=== PATIENT | female | born 1935 | race Caucasian/White ===

== ENCOUNTER 2023-04-17 11:37 | Emergency (ER) | payer OTHER ==
[2023-04-17 12:07] VITALS: BMI 20.1
[2023-04-17] MEDS ORDERED: ACETAMINOPHEN 1000 MG/100 ML BAG IVPB ONE (12:37)
[2023-04-17 13:24] LABS: INR 1.05 (0.83-1.09); PROTHROMBIN TIME (PATIENT) 12.2 SEC (9.7-13.0)
[2023-04-17 13:25] LABS: BASO % 0.6 % (0-2.0); EOS % 2.2 % (0-4.5); HEMATOCRIT 44.6 % (32.4-45.2); HEMOGLOBIN 14.1 GM/dL (10.7-15.3); LYMPH % 9.8 % (8-40); MCH 30.6 pg (25.7-33.7); MCHC 31.6 g/dl (32.0-36.0); MEAN CELL VOLUME 96.9 fl (80-96); MEAN PLT VOLUME 9.2 fl (7.5-11.1); MONO % 5.5 % (3.8-10.2); NEUT % 81.9 % (42.8-82.8); PLATELET COUNT 470 10^3/uL (134-434); RDW 17.4 % (11.6-15.6); WHITE BLOOD COUNT 9.7 K/mm3 (4.0-10.0)
[2023-04-17 13:27] LABS: ACTIVATED PTT 35.1 SECONDS (25.2-36.5)
[2023-04-17] MEDS ORDERED: ACETAMINOPHEN INJECTION 100 ML IVPB ONE (13:32)
[2023-04-17 13:42] LABS: EPI CELLS >36 /uL (0-25.1); HYALINE CASTS 1 /uL (0-3.1); PH,URINE 7.5 (5.0-8.0); URINE APPEARANCE CLOUDY; URINE BACTERIA >9,000 /uL (0-1359); URINE BILIRUBIN NEGATIVE (NEGATIVE); URINE COLOR YELLOW; URINE GLUCOSE (UA) NEGATIVE (NEGATIVE); URINE KETONE NEGATIVE (NEGATIVE); URINE LEUK ESTERASE 2+ (NEGATIVE); URINE NITRITE NEGATIVE (NEGATIVE); URINE PROTEIN TRACE (NEGATIVE); URINE RBC 18 /uL (0-23.9); URINE UROBILINOGEN 0.2 mg/dL (0.2-1.0); URINE WBC 632 /uL (0-25.8)
[2023-04-17] MEDS ORDERED: CEFTRIAXONE 1,000 MG in DEXTROSE 5%-WATER - 50 ML IVPB ONE (15:33)
[2023-04-17] MEDS ORDERED: CEFTRIAXONE 1 GM/50 ML BAG ONE (15:41)
[2023-04-17 18:20] LABS: POTASSIUM 4.7 mmol/L (3.5-5.1)
[2023-04-17 18:23] LABS: BLOOD UREA NITROGEN 25.2 mg/dL (7-18)
[2023-04-17 18:26] LABS: CREATININE 0.9 mg/dL (0.55-1.3)
[2023-04-17 18:27] LABS: BILIRUBIN,TOTAL 1.1 mg/dL (0.2-1)
[2023-04-17 18:41] LABS: ALBUMIN 3.3 g/dl (3.4-5.0); TOT PROT 6.2 g/dl (6.4-8.2)
[2023-04-17 22:39] VITALS: BP 122/61; PULSE 65; RESP 16; TEMP 98.7
== END 2023-04-17 22:54 | disposition home or self-care (01) ==
LOC: JER 11:37
PROC: 3E033GC Introduction of Other Therapeutic Substance into Peripheral Vein, Percutaneous Approach (ICD-10-PCS; principal; 2023-04-17)
PROC: 3E033NZ Introduction of Analgesics, Hypnotics, Sedatives into Peripheral Vein, Percutaneous Approach (ICD-10-PCS; 2023-04-17)
DX: R22.41 Localized swelling, mass and lump, right lower limb (principal); S80.11XA Contusion of right lower leg, initial encounter; N39.0 Urinary tract infection, site not specified; W19.XXXA Unspecified fall, initial encounter
CPT/HCPCS: 36415; 70450-TC; 71045-TC-FY; 72125-TC; 72170-TC-FY; 73590-TC-RT-FY; 73610-TC-RT-FY; 73630-TC-RT-FY; 80053; 81003; 84484; 85025; 85610; 85730; 87086; 87186; 93005; 93010; 93971-TC; 99285-25

== ENCOUNTER 2023-04-27 18:59 | Inpatient (IN) | payer OTHER ==
[2023-04-27] MEDS ORDERED: BACITRACIN ZINC 15 GM TUBE TOPICAL OINTMENT TP ONE (20:46)
[2023-04-27] MEDS ORDERED: BACITRACIN 0.9 GM PACKET ONE (20:48)
[2023-04-27] MEDS ORDERED: BACITRACIN ZINC 15 GM TUBE TOPICAL OINTMENT ONE (20:49)
[2023-04-27 21:46] LABS: EOS % 3.4 % (0-4.5); HEMATOCRIT 38.7 % (32.4-45.2); HEMOGLOBIN 12.3 GM/dL (10.7-15.3); LYMPH % 14.1 % (8-40); MCH 30.6 pg (25.7-33.7); MCHC 31.8 g/dl (32.0-36.0); MEAN CELL VOLUME 96.2 fl (80-96); MEAN PLT VOLUME 8.7 fl (7.5-11.1); NEUT % 72.5 % (42.8-82.8); PLATELET COUNT 450 10^3/uL (134-434); RBC 4.02 M/mm3 (3.60-5.2); RDW 13.7 % (11.6-15.6); WHITE BLOOD COUNT 12.4 K/mm3 (4.0-10.0)
[2023-04-27 22:05] LABS: POTASSIUM 5.5 mmol/L (3.5-5.1)
[2023-04-27 22:07] LABS: ALBUMIN 2.8 g/dl (3.4-5.0); CALCIUM 8.8 mg/dL (8.5-10.1)
[2023-04-27 22:08] LABS: BLOOD UREA NITROGEN 31.1 mg/dL (7-18)
[2023-04-27 22:12] LABS: BILIRUBIN,TOTAL 0.9 mg/dL (0.2-1); TOT PROT 6.2 g/dl (6.4-8.2)
[2023-04-27] MEDS ORDERED: traZODone HCL 50 MG TABLET (FP) PO ONE (23:16)
[2023-04-27] MEDS ORDERED: ACETAMINOPHEN 325 MG TABLET (FP) PO PRN (23:22)
[2023-04-27] MEDS: INSULIN SLIDING SCALE (NOVOLOG) 1 VIAL SQ SCH (23:57)
[2023-04-28] MEDS ORDERED: traZODone HCL 50 MG TABLET (FP) ONE (00:08)
[2023-04-28] MEDS: DEXTROSE 5%-0.45% SALINE 1,000 ML IV SCH (00:16)
[2023-04-28] MEDS: HEPARIN NA (PORCINE) 5,000 UNITS/ML 1ML VIAL SQ SCH ×4 (00:33→22:19)
[2023-04-28] MEDS ORDERED: CEFAZOLIN 1 GM in DEXTROSE 5%-WATER - 50 ML IVPB ONE (01:07)
[2023-04-28] MEDS ORDERED: traZODone HCL 50 MG TABLET (FP) PO PRN (01:12)
[2023-04-28] MEDS ORDERED: ceFAZolin SODIUM 1 GM VIAL ONE (01:16)
[2023-04-28 02:45] VITALS: BMI 19.1
[2023-04-28] MEDS: INSULIN SLIDING SCALE (NOVOLOG) 1 VIAL SQ SCH ×3 (06:05→17:21)
[2023-04-28] MEDS: AMINO ACIDS/PROTEIN HYDROLYS 30 ML LIQUID.PKT PO SCH ×2 (08:02→18:15)
[2023-04-28 09:37] LABS: BASO % 0.8 % (0-2.0); HEMATOCRIT 35.1 % (32.4-45.2); HEMOGLOBIN 11.9 GM/dL (10.7-15.3); LYMPH % 15.9 % (8-40); MCH 31.8 pg (25.7-33.7); MEAN CELL VOLUME 93.5 fl (80-96); MEAN PLT VOLUME 8.7 fl (7.5-11.1); MONO % 7.3 % (3.8-10.2); PLATELET COUNT 445 10^3/uL (134-434); RBC 3.75 M/mm3 (3.60-5.2); RDW 14.1 % (11.6-15.6); WHITE BLOOD COUNT 8.8 K/mm3 (4.0-10.0)
[2023-04-28 09:43] LABS: POTASSIUM 4.3 mmol/L (3.5-5.1)
[2023-04-28 09:49] LABS: BLOOD UREA NITROGEN 23.7 mg/dL (7-18); CALCIUM 8.8 mg/dL (8.5-10.1)
[2023-04-28 09:52] LABS: CREATININE 0.9 mg/dL (0.55-1.3)
[2023-04-28] MEDS: ZINC SULFATE 220 MG CAPSULE (FP) PO SCH (10:39)
[2023-04-28] MEDS: VITAMIN A 10,000 UNITS (3000 MCG) CAPSULE PO SCH (10:39)
[2023-04-28] MEDS: ASCORBIC ACID 500 MG TABLET (FP) PO SCH (10:39)
[2023-04-28] MEDS: CHOLECALCIFEROL (VIT D3) 5000 UNITS (125 MCG) CAP PO SCH (10:39)
[2023-04-28] MEDS: MULTIVITAMINS THER W-MINERALS COMBO TABLET (FP) PO SCH (10:39)
[2023-04-28] MEDS ORDERED: VANCOMYCIN 1,000 MG in DEXTROSE 5%-WATER - 250 ML IVPB SCH (13:00)
[2023-04-28] MEDS: PIPERACILLIN/TAZOB 2.25 GM 2.25 GM in DEXTROSE 5%-WATER - 50 ML IVPB SCH ×2 (14:03→18:15)
[2023-04-28] MEDS ORDERED: VANCOMYCIN/WATER FOR INJ (PEG) 1,000 MG/200 ML BAG IVPB ONE (15:00)
[2023-04-28 15:39] LABS: URINE APPEARANCE CLEAR; URINE BILIRUBIN NEGATIVE (NEGATIVE); URINE COLOR YELLOW; URINE GLUCOSE (UA) NEGATIVE (NEGATIVE); URINE KETONE NEGATIVE (NEGATIVE); URINE LEUK ESTERASE NEGATIVE (NEGATIVE); URINE NITRITE NEGATIVE (NEGATIVE); URINE PROTEIN NEGATIVE (NEGATIVE); URINE UROBILINOGEN 0.2 mg/dL (0.2-1.0)
[2023-04-28] MEDS ORDERED: MIRTAZAPINE 15 MG TABLET (FP) PO SCH (22:00)
[2023-04-29] MEDS: PIPERACILLIN/TAZOB 2.25 GM 2.25 GM in DEXTROSE 5%-WATER - 50 ML IVPB SCH ×3 (01:55→17:35)
[2023-04-29] MEDS: HEPARIN NA (PORCINE) 5,000 UNITS/ML 1ML VIAL SQ SCH ×3 (06:54→21:58)
[2023-04-29] MEDS: INSULIN SLIDING SCALE (NOVOLOG) 1 VIAL SQ SCH ×3 (06:55→16:58)
[2023-04-29] MEDS: DEXTROSE 5%-0.45% SALINE 1,000 ML IV SCH ×2 (06:55→14:31)
[2023-04-29 09:48] LABS: BASO % 1.3 % (0-2.0); EOS % 4.1 % (0-4.5); HEMATOCRIT 34.5 % (32.4-45.2); HEMOGLOBIN 11.3 GM/dL (10.7-15.3); LYMPH % 17.1 % (8-40); MCH 30.9 pg (25.7-33.7); MCHC 32.6 g/dl (32.0-36.0); MEAN CELL VOLUME 94.9 fl (80-96); MEAN PLT VOLUME 8.7 fl (7.5-11.1); NEUT % 69.5 % (42.8-82.8); PLATELET COUNT 425 10^3/uL (134-434); RBC 3.64 M/mm3 (3.60-5.2); RDW 13.7 % (11.6-15.6); WHITE BLOOD COUNT 8.4 K/mm3 (4.0-10.0)
[2023-04-29] MEDS: MULTIVITAMINS THER W-MINERALS COMBO TABLET (FP) PO SCH (09:51)
[2023-04-29] MEDS: ASCORBIC ACID 500 MG TABLET (FP) PO SCH (09:51)
[2023-04-29] MEDS: ZINC SULFATE 220 MG CAPSULE (FP) PO SCH (09:51)
[2023-04-29] MEDS: AMINO ACIDS/PROTEIN HYDROLYS 30 ML LIQUID.PKT PO SCH ×2 (09:51→17:35)
[2023-04-29] MEDS: VITAMIN A 10,000 UNITS (3000 MCG) CAPSULE PO SCH (09:53)
[2023-04-29] MEDS: CHOLECALCIFEROL (VIT D3) 5000 UNITS (125 MCG) CAP PO SCH (09:53)
[2023-04-29 10:12] LABS: POTASSIUM 4.4 mmol/L (3.5-5.1)
[2023-04-29 10:16] LABS: CALCIUM 8.5 mg/dL (8.5-10.1)
[2023-04-29 10:17] LABS: BLOOD UREA NITROGEN 24.1 mg/dL (7-18)
[2023-04-29 10:20] LABS: CREATININE 0.9 mg/dL (0.55-1.3)
[2023-04-29] MEDS: VANCOMYCIN/WATER FOR INJ (PEG) 1,000 MG/200 ML BAG IVPB SCH (14:30)
[2023-04-30] MEDS: PIPERACILLIN/TAZOB 2.25 GM 2.25 GM in DEXTROSE 5%-WATER - 50 ML IVPB SCH ×3 (01:19→17:52)
[2023-04-30] MEDS: INSULIN SLIDING SCALE (NOVOLOG) 1 VIAL SQ SCH ×3 (06:22→17:10)
[2023-04-30] MEDS: AMINO ACIDS/PROTEIN HYDROLYS 30 ML LIQUID.PKT PO SCH ×2 (08:55→17:52)
[2023-04-30] MEDS: DEXTROSE 5%-0.45% SALINE 1,000 ML IV SCH ×3 (09:09→17:09)
[2023-04-30 11:13] LABS: BASO % 1.3 % (0-2.0); HEMATOCRIT 33.7 % (32.4-45.2); HEMOGLOBIN 11.2 GM/dL (10.7-15.3); LYMPH % 17.2 % (8-40); MCH 31.6 pg (25.7-33.7); MCHC 33.2 g/dl (32.0-36.0); MEAN CELL VOLUME 95.2 fl (80-96); MEAN PLT VOLUME 8.5 fl (7.5-11.1); MONO % 7.7 % (3.8-10.2); NEUT % 69.8 % (42.8-82.8); PLATELET COUNT 446 10^3/uL (134-434); RBC 3.54 M/mm3 (3.60-5.2); RDW 13.7 % (11.6-15.6); WHITE BLOOD COUNT 7.4 K/mm3 (4.0-10.0)
[2023-04-30 11:29] LABS: POTASSIUM 4.1 mmol/L (3.5-5.1)
[2023-04-30 12:29] LABS: ERYTHROCYTE SEDIMENTATION RATE 38 mm/hr (0-30)
[2023-04-30 12:38] LABS: CALCIUM 8.6 mg/dL (8.5-10.1)
[2023-04-30 12:42] LABS: CREATININE 0.9 mg/dL (0.55-1.3)
[2023-04-30] MEDS: VITAMIN A 10,000 UNITS (3000 MCG) CAPSULE PO SCH (13:00)
[2023-04-30] MEDS: ZINC SULFATE 220 MG CAPSULE (FP) PO SCH (13:01)
[2023-04-30] MEDS: MULTIVITAMINS THER W-MINERALS COMBO TABLET (FP) PO SCH (13:01)
[2023-04-30] MEDS: ASCORBIC ACID 500 MG TABLET (FP) PO SCH (13:22)
[2023-04-30] MEDS: CHOLECALCIFEROL (VIT D3) 5000 UNITS (125 MCG) CAP PO SCH (13:23)
[2023-04-30] MEDS ORDERED: LIDOCAINE HCL 1%, 10 MG/ML (20ML VIAL) ONE (14:26)
[2023-04-30] MEDS ORDERED: VANCOMYCIN 1,000 MG VIAL (RESTRICTED TO ID ONLY) ONE (14:26)
[2023-04-30] MEDS ORDERED: PROPOFOL 20 ML ONE (14:39)
[2023-04-30] MEDS ORDERED: FENTANYL CITRATE/PF 50 MCG/ML VIAL ONE (14:40)
[2023-04-30] MEDS ORDERED: ceFAZolin SODIUM 1 GM VIAL ONE (15:12)
[2023-04-30] MEDS ORDERED: ceFAZolin SODIUM 1 GM VIAL IVPB ONE (15:15)
[2023-04-30] MEDS ORDERED: PROMETHAZINE HCL 25 MG/1 ML VIAL IVPB PRN ×2 (15:37→16:12)
[2023-04-30] MEDS ORDERED: ONDANSETRON 4 MG/2 ML VIAL IVPUSH PRN ×2 (15:37→16:12)
[2023-04-30] MEDS ORDERED: LACTATED RINGERS SOLUTION 1,000 ML IV SCH (15:45)
[2023-04-30] MEDS ORDERED: ACETAMINOPHEN 325 MG TABLET (FP) PO PRN (16:12)
[2023-04-30] MEDS ORDERED: traZODone HCL 50 MG TABLET (FP) PO PRN (16:12)
[2023-04-30] MEDS: VANCOMYCIN/WATER FOR INJ (PEG) 1,000 MG/200 ML BAG IVPB SCH (16:45)
[2023-04-30] MEDS: LACTATED RINGERS SOLUTION 1,000 ML IV SCH (17:09)
[2023-04-30] MEDS: COLLAGENASE CLOSTRIDIUM HIST. 30 GRAMS TUBE TP SCH (18:44)
[2023-04-30] MEDS: HEPARIN NA (PORCINE) 5,000 UNITS/ML 1ML VIAL SQ SCH (21:05)
[2023-05-01] MEDS ORDERED: PIPERACILLIN/TAZOBACTAM 2.25 GM VIAL IVPB ONE (02:20)
[2023-05-01] MEDS: PIPERACILLIN/TAZOB 2.25 GM 2.25 GM in DEXTROSE 5%-WATER - 50 ML IVPB SCH ×3 (02:29→17:46)
[2023-05-01] MEDS: HEPARIN NA (PORCINE) 5,000 UNITS/ML 1ML VIAL SQ SCH ×3 (06:14→22:19)
[2023-05-01] MEDS: INSULIN SLIDING SCALE (NOVOLOG) 1 VIAL SQ SCH ×3 (06:22→16:58)
[2023-05-01] MEDS: ZINC SULFATE 220 MG CAPSULE (FP) PO SCH (09:38)
[2023-05-01] MEDS: MULTIVITAMINS THER W-MINERALS COMBO TABLET (FP) PO SCH (09:38)
[2023-05-01] MEDS: ASCORBIC ACID 500 MG TABLET (FP) PO SCH (09:38)
[2023-05-01] MEDS: AMINO ACIDS/PROTEIN HYDROLYS 30 ML LIQUID.PKT PO SCH ×2 (09:38→17:46)
[2023-05-01] MEDS: CHOLECALCIFEROL (VIT D3) 5000 UNITS (125 MCG) CAP PO SCH (09:39)
[2023-05-01] MEDS: VITAMIN A 10,000 UNITS (3000 MCG) CAPSULE PO SCH (09:39)
[2023-05-01] MEDS: COLLAGENASE CLOSTRIDIUM HIST. 30 GRAMS TUBE TP SCH (09:40)
[2023-05-01 09:58] LABS: EOS % 2.9 % (0-4.5); HEMATOCRIT 34.7 % (32.4-45.2); LYMPH % 13.4 % (8-40); MCHC 34.4 g/dl (32.0-36.0); MEAN PLT VOLUME 8.3 fl (7.5-11.1); MONO % 6.9 % (3.8-10.2); NEUT % 75.8 % (42.8-82.8); PLATELET COUNT 450 10^3/uL (134-434); RBC 3.73 M/mm3 (3.60-5.2); RDW 13.7 % (11.6-15.6)
[2023-05-01 10:28] LABS: BLOOD UREA NITROGEN 17.1 mg/dL (7-18); CALCIUM 8.8 mg/dL (8.5-10.1)
[2023-05-01 10:31] LABS: CREATININE 0.8 mg/dL (0.55-1.3)
[2023-05-01] MEDS: DEXTROSE 5%-0.45% SALINE 1,000 ML IV SCH ×3 (14:18→22:24)
[2023-05-01] MEDS: VANCOMYCIN/WATER FOR INJ (PEG) 1,000 MG/200 ML BAG IVPB SCH (14:19)
[2023-05-01] MEDS: LACTATED RINGERS SOLUTION 1,000 ML IV SCH (16:57)
[2023-05-02] MEDS: PIPERACILLIN/TAZOB 2.25 GM 2.25 GM in DEXTROSE 5%-WATER - 50 ML IVPB SCH ×3 (03:33→17:20)
[2023-05-02] MEDS: HEPARIN NA (PORCINE) 5,000 UNITS/ML 1ML VIAL SQ SCH ×3 (05:48→21:22)
[2023-05-02] MEDS: INSULIN SLIDING SCALE (NOVOLOG) 1 VIAL SQ SCH ×3 (06:13→16:53)
[2023-05-02 08:47] LABS: BASO % 1.2 % (0-2.0); EOS % 3.5 % (0-4.5); HEMATOCRIT 35.7 % (32.4-45.2); HEMOGLOBIN 11.5 GM/dL (10.7-15.3); LYMPH % 15.5 % (8-40); MCH 30.9 pg (25.7-33.7); MCHC 32.3 g/dl (32.0-36.0); MEAN CELL VOLUME 95.8 fl (80-96); MEAN PLT VOLUME 8.8 fl (7.5-11.1); MONO % 8.3 % (3.8-10.2); NEUT % 71.5 % (42.8-82.8); PLATELET COUNT 486 10^3/uL (134-434); RBC 3.72 M/mm3 (3.60-5.2); RDW 13.9 % (11.6-15.6); WHITE BLOOD COUNT 8.3 K/mm3 (4.0-10.0)
[2023-05-02] MEDS: AMINO ACIDS/PROTEIN HYDROLYS 30 ML LIQUID.PKT PO SCH ×2 (08:47→16:53)
[2023-05-02 09:14] LABS: POTASSIUM 4.4 mmol/L (3.5-5.1)
[2023-05-02 09:16] LABS: BLOOD UREA NITROGEN 21.2 mg/dL (7-18); CALCIUM 9.4 mg/dL (8.5-10.1)
[2023-05-02 09:20] LABS: CREATININE 0.9 mg/dL (0.55-1.3)
[2023-05-02] MEDS: COLLAGENASE CLOSTRIDIUM HIST. 30 GRAMS TUBE TP SCH (10:08)
[2023-05-02] MEDS: ASCORBIC ACID 500 MG TABLET (FP) PO SCH (10:08)
[2023-05-02] MEDS: ZINC SULFATE 220 MG CAPSULE (FP) PO SCH (10:08)
[2023-05-02] MEDS: CHOLECALCIFEROL (VIT D3) 5000 UNITS (125 MCG) CAP PO SCH (10:09)
[2023-05-02] MEDS: VITAMIN A 10,000 UNITS (3000 MCG) CAPSULE PO SCH (10:09)
[2023-05-02] MEDS: MULTIVITAMINS THER W-MINERALS COMBO TABLET (FP) PO SCH (10:10)
[2023-05-02] MEDS: VANCOMYCIN/WATER FOR INJ (PEG) 1,000 MG/200 ML BAG IVPB SCH (14:51)
[2023-05-02] MEDS: LACTATED RINGERS SOLUTION 1,000 ML IV SCH (16:30)
[2023-05-03] MEDS: PIPERACILLIN/TAZOB 2.25 GM 2.25 GM in DEXTROSE 5%-WATER - 50 ML IVPB SCH (01:21)
[2023-05-03] MEDS: HEPARIN NA (PORCINE) 5,000 UNITS/ML 1ML VIAL SQ SCH ×3 (06:09→22:01)
[2023-05-03] MEDS: INSULIN SLIDING SCALE (NOVOLOG) 1 VIAL SQ SCH ×3 (06:16→16:59)
[2023-05-03] MEDS: DEXTROSE 5%-0.45% SALINE 1,000 ML IV SCH (07:08)
[2023-05-03] MEDS: AMOX TR/POT CLAV 500MG/125MG TABLETS (FP) PO SCH ×2 (07:56→16:38)
[2023-05-03] MEDS: AMINO ACIDS/PROTEIN HYDROLYS 30 ML LIQUID.PKT PO SCH ×2 (07:56→16:38)
[2023-05-03] MEDS: CHOLECALCIFEROL (VIT D3) 5000 UNITS (125 MCG) CAP PO SCH (09:01)
[2023-05-03] MEDS: VITAMIN A 10,000 UNITS (3000 MCG) CAPSULE PO SCH (09:01)
[2023-05-03] MEDS: ZINC SULFATE 220 MG CAPSULE (FP) PO SCH (09:01)
[2023-05-03] MEDS: MULTIVITAMINS THER W-MINERALS COMBO TABLET (FP) PO SCH (09:01)
[2023-05-03] MEDS: ASCORBIC ACID 500 MG TABLET (FP) PO SCH (09:01)
[2023-05-03] MEDS: COLLAGENASE CLOSTRIDIUM HIST. 30 GRAMS TUBE TP SCH (09:02)
[2023-05-03 09:05] LABS: BASO % 1.2 % (0-2.0); EOS % 4.1 % (0-4.5); HEMATOCRIT 35.1 % (32.4-45.2); HEMOGLOBIN 11.4 GM/dL (10.7-15.3); LYMPH % 15.9 % (8-40); MCH 31.3 pg (25.7-33.7); MCHC 32.5 g/dl (32.0-36.0); MEAN CELL VOLUME 96.2 fl (80-96); MEAN PLT VOLUME 8.4 fl (7.5-11.1); MONO % 8.4 % (3.8-10.2); NEUT % 70.4 % (42.8-82.8); PLATELET COUNT 454 10^3/uL (134-434); RBC 3.64 M/mm3 (3.60-5.2); WHITE BLOOD COUNT 7.7 K/mm3 (4.0-10.0)
[2023-05-03 09:25] LABS: POTASSIUM 4.3 mmol/L (3.5-5.1)
[2023-05-03 09:26] LABS: BLOOD UREA NITROGEN 19.9 mg/dL (7-18); CALCIUM 9.3 mg/dL (8.5-10.1)
[2023-05-03 09:30] LABS: CREATININE 0.9 mg/dL (0.55-1.3)
[2023-05-03] MEDS: LACTATED RINGERS SOLUTION 1,000 ML IV SCH (16:37)
[2023-05-04] MEDS: HEPARIN NA (PORCINE) 5,000 UNITS/ML 1ML VIAL SQ SCH ×3 (06:33→21:53)
[2023-05-04] MEDS: INSULIN SLIDING SCALE (NOVOLOG) 1 VIAL SQ SCH ×3 (06:39→16:47)
[2023-05-04] MEDS: DEXTROSE 5%-0.45% SALINE 1,000 ML IV SCH ×2 (06:49→21:56)
[2023-05-04 09:40] LABS: BASO % 0.9 % (0-2.0); EOS % 2.7 % (0-4.5); HEMATOCRIT 37.2 % (32.4-45.2); HEMOGLOBIN 12.2 GM/dL (10.7-15.3); LYMPH % 12.8 % (8-40); MCH 31.1 pg (25.7-33.7); MCHC 32.7 g/dl (32.0-36.0); MEAN CELL VOLUME 95.2 fl (80-96); MEAN PLT VOLUME 8.4 fl (7.5-11.1); MONO % 7.1 % (3.8-10.2); NEUT % 76.5 % (42.8-82.8); PLATELET COUNT 481 10^3/uL (134-434); RBC 3.91 M/mm3 (3.60-5.2); WHITE BLOOD COUNT 9.6 K/mm3 (4.0-10.0)
[2023-05-04 09:55] LABS: POTASSIUM 4.6 mmol/L (3.5-5.1)
[2023-05-04 10:03] LABS: BLOOD UREA NITROGEN 22.7 mg/dL (7-18); CALCIUM 9.2 mg/dL (8.5-10.1)
[2023-05-04 10:06] LABS: CREATININE 0.9 mg/dL (0.55-1.3)
[2023-05-04] MEDS: AMOX TR/POT CLAV 500MG/125MG TABLETS (FP) PO SCH ×2 (11:04→16:47)
[2023-05-04] MEDS: MULTIVITAMINS THER W-MINERALS COMBO TABLET (FP) PO SCH (11:04)
[2023-05-04] MEDS: ZINC SULFATE 220 MG CAPSULE (FP) PO SCH (11:04)
[2023-05-04] MEDS: AMINO ACIDS/PROTEIN HYDROLYS 30 ML LIQUID.PKT PO SCH ×2 (11:04→16:47)
[2023-05-04] MEDS: ASCORBIC ACID 500 MG TABLET (FP) PO SCH (11:04)
[2023-05-04] MEDS: VITAMIN A 10,000 UNITS (3000 MCG) CAPSULE PO SCH (11:05)
[2023-05-04] MEDS: CHOLECALCIFEROL (VIT D3) 5000 UNITS (125 MCG) CAP PO SCH (11:05)
[2023-05-04] MEDS: COLLAGENASE CLOSTRIDIUM HIST. 30 GRAMS TUBE TP SCH (11:05)
[2023-05-04] MEDS: LACTATED RINGERS SOLUTION 1,000 ML IV SCH (16:40)
[2023-05-05 05:07] VITALS: RESP 18
[2023-05-05 06:18] VITALS: BP 143/68; PULSE 70; TEMP 97.6
[2023-05-05] MEDS: HEPARIN NA (PORCINE) 5,000 UNITS/ML 1ML VIAL SQ SCH (06:38)
[2023-05-05] MEDS: INSULIN SLIDING SCALE (NOVOLOG) 1 VIAL SQ SCH ×2 (06:44→12:08)
[2023-05-05] MEDS: AMOX TR/POT CLAV 500MG/125MG TABLETS (FP) PO SCH (09:42)
[2023-05-05] MEDS: ASCORBIC ACID 500 MG TABLET (FP) PO SCH (09:42)
[2023-05-05] MEDS: ZINC SULFATE 220 MG CAPSULE (FP) PO SCH (09:42)
[2023-05-05] MEDS: MULTIVITAMINS THER W-MINERALS COMBO TABLET (FP) PO SCH (09:42)
[2023-05-05] MEDS: VITAMIN A 10,000 UNITS (3000 MCG) CAPSULE PO SCH (09:42)
[2023-05-05] MEDS: AMINO ACIDS/PROTEIN HYDROLYS 30 ML LIQUID.PKT PO SCH (09:42)
[2023-05-05] MEDS: COLLAGENASE CLOSTRIDIUM HIST. 30 GRAMS TUBE TP SCH (09:43)
[2023-05-05] MEDS: CHOLECALCIFEROL (VIT D3) 5000 UNITS (125 MCG) CAP PO SCH (09:43)
[2023-05-05 10:33] LABS: BASO % 0.9 % (0-2.0); EOS % 2.9 % (0-4.5); HEMATOCRIT 37.3 % (32.4-45.2); HEMOGLOBIN 12.2 GM/dL (10.7-15.3); LYMPH % 12.2 % (8-40); MCH 31.4 pg (25.7-33.7); MCHC 32.7 g/dl (32.0-36.0); MEAN CELL VOLUME 96.1 fl (80-96); MEAN PLT VOLUME 8.6 fl (7.5-11.1); MONO % 6.8 % (3.8-10.2); NEUT % 77.2 % (42.8-82.8); PLATELET COUNT 464 10^3/uL (134-434); RBC 3.89 M/mm3 (3.60-5.2); RDW 13.9 % (11.6-15.6); WHITE BLOOD COUNT 9.8 K/mm3 (4.0-10.0)
[2023-05-05 10:52] LABS: POTASSIUM 4.2 mmol/L (3.5-5.1)
[2023-05-05 10:54] LABS: BLOOD UREA NITROGEN 22.4 mg/dL (7-18); CALCIUM 8.7 mg/dL (8.5-10.1)
[2023-05-05 10:58] LABS: CREATININE 0.9 mg/dL (0.55-1.3)
== END 2023-05-05 13:19 | disposition short-term general hospital (02) | DRG 592 ==
LOC: JER 18:59 → JERBED 22:54 → J5S 04-28 02:32
PROVIDERS: ADMIT Internal Medicine; ATTEND Internal Medicine
PROC: 0HCKXZZ Extirpation of Matter from Right Lower Leg Skin, External Approach (ICD-10-PCS; principal; 2023-04-30 18:30)
DX: L97.919 Non-pressure chronic ulcer of unspecified part of right lower leg with unspecified severity (principal); R53.2 Functional quadriplegia; L03.115 Cellulitis of right lower limb; R64 Cachexia; Z68.1 Body mass index [BMI] 19.9 or less, adult; I10 Essential (primary) hypertension; S90.01XA Contusion of right ankle, initial encounter; X58.XXXA Exposure to other specified factors, initial encounter; Y93.9 Activity, unspecified; Y92.9 Unspecified place or not applicable; Y99.9 Unspecified external cause status; E87.5 Hyperkalemia; E11.9 Type 2 diabetes mellitus without complications; S91.001A Unspecified open wound, right ankle, initial encounter; E86.0 Dehydration; M62.81 Muscle weakness (generalized); E77.8 Other disorders of glycoprotein metabolism; R26.81 Unsteadiness on feet; G47.00 Insomnia, unspecified; E88.09 Other disorders of plasma-protein metabolism, not elsewhere classified; F03.90 Unspecified dementia, unspecified severity, without behavioral disturbance, psychotic disturbance, mood disturbance, and anxiety; D72.829 Elevated white blood cell count, unspecified; Z95.0 Presence of cardiac pacemaker
CPT/HCPCS: 36415; 73590-TC-RT-FY; 80048; 80053; 81003; 82962; 83605; 85025; 85651; 86140; 87040; 87086; 87635; 93005; 93010; 93306-TC; 94760; 97116-GP; 97162-GP; 99285-25; J1644